=== PATIENT | male | born 1945 | race Caucasian/White ===

== ENCOUNTER → 2018-12-17 | Outpatient (CLI) | payer OTHER ==
[~2018-12-17] VITALS: Ht 182.9 cm; Wt 104.3 kg
[~2018-12-17] MED LIST: ASPIR 8181 MG PO; BAYER CHEWABLE81 MG PO; CENTRUM SILVER1 EAC2 PO; CLOPIDOGREL75 MG PO; HYZAAR 100-12.1 EACH PO; LISINOPRIL-HCT1 EACH; LOPRESSOR25; LOSARTAN-HCTZ1 EAC1 PO; MOBIC15 MG PO; NORCO 5-325 TA1 EACH PO; TOPROL XL25 MG PO; TURMERIC500 M2 PO; [UNRECOGNIZED DRUG - OTHER]; [UNRECOGNIZED DRUG - OTHER]; [UNRECOGNIZED DRUG - OTHER] PO
[2018-12-17 07:23] LABS: HEMATOCRIT 49.8 % (42.0-52.0); HEMOGLOBIN 17.2 gm/dL (14.0-18.0); MCH 31.7 pg (26.0-34.0); MCHC 34.5 g/dL (28.0-37.0); RBC 5.41 mil/uL (4.50-6.00); RDW 13.2 % (10.5-14.5); WBC 6.2 thou/uL (4.0-11.0)
[2018-12-17 07:31] LABS: CALCIUM 9.9 mg/dL (8.5-10.1); CREATININE 1.4 mg/dL (0.7-1.3); POTASSIUM 3.9 mmol/L (3.5-5.1)
[2018-12-17 07:44] VITALS: BP 125/77
--- NOTE | 2018-12-17 08:00 | EKG ---
[place] [address] [facility] [place] [address] ELECTROCARDIOGRAM REPORT Name: SUSANNA VASQUES MABEL [facility] #: [facility] CenterGallo[facility] [id number] ������������������ Admission: 12/17/18 ������������������ Attend Phys: Leon Rdz MD, Discharge: ������������������ Date of : 41 Report #: [id number] ����������������������������������������������������������������� [id number] THIS REPORT FOR: //name// [facility] Test Date: 2018-12-17 Test Time: 07:18:36 Pat Name: SUSANNA VASQUES Department: Room: Gender: Cloud Physicist: Mónica SOLANO : 1945 Requested By: Leon Rdz Order Number: [id number] MD: Bernard Cespedes Measurements Intervals [place] Rate: 63 P: 23 ME: 229 QRS: 27 QRSD: 147 T: 4 QT: 429 QTc: 440 Interpretive Statements Sinus rhythm Prolonged ME interval Right bundle branch block Compared to ECG 01/14/2014 07:49:59 Inferior Q waves are less prominent Right bundle-branch block now present Electronically Signed On 12-17-2018 8:00:33 CDT by Bernard Cespedes [email or web address] ��������������������������������������������� <ELECTRONICALLY SIGNED> ���������������������������������������� By: Bernard Cespedes MD, [facility] ��������������������������������������������� 12/17/18799 7 7 Bernard Cespedes MD, [facility] /EPI
--- NOTE | 2018-12-17 15:48 | CATHLAB ---
Formerly [facility] [place] [address] INVASIVE PROCEDURE REPORT Name: SUSANNA VASQUES Room #: REG HIMANSHU Wolff#: [id number] ������������� Admission: 12/17/18 ������������� Attend Phys: Leon Rdz, Discharge: ��� ������������� ��� Date of : 41 Date of Service: 12/17/18 1548 �� Report #: [id number] �������� ��������������������������������������������[id number] THIS REPORT FOR: //name// APPROVED REPORT Study performed: 12/17/2018 08:37:32 Patient Details Patient Status: Out-Patient Room #: The patient is a 73 year-old male Event Personnel Leon Rdz Per Diem Interpreter, Leonidas Singh RN RN, Dante Quintana RTR Scrub, Alfred Modi Monitor Procedures Performed Left Heart Cath w/or w/o Coronaries [id number] [facility], [facility] Indication Chest pain Procedure Narrative The Right Groin^ was infiltrated with 1% Lidocaine subcutaneous anesthesia. A PINNACLE 6FR Sheath #[id number] sheath was inserted into the RFA^. Coronary angiography was performed using coronary diagnostic catheters. The right coronary system was accessed and visualized with a JR4 catheter. The left coronary system was accessed and visualized with a JL4 catheter. The left ventricle was accessed and visualized with a PIGTAIL catheter. Left ventriculogram was performed in ORNELAS projection. An aortogram of the ascending aorta was performed. The patient tolerated the procedure well and there were no complications associated with the procedure. Intraoperative Conscious Sedation Sedation start time: 08 Case end Time: 08 Fentanyl 50 mcg Versed 1 mg Fluoro Time: 10.59 minutes Dose: DAP 10803.00 cGycm2 523 mGy Contrast Type and Amount: Visipaque 80 ml Hemodynamics The aortic pressure is 139/71 mmHg with a mean of 87 mmHg. The left [facility] [address] [place] [address] INVASIVE PROCEDURE REPORT Name: SUSANNA VASQUES Room #: [facility] Mariella#: [id number] ������������� Admission: 12/17/18 ������������� Attend Phys: Leon Rdz, Discharge: ��� ������������� ��� Date of : 41 Date of Service: 12/17/18 1548 �� Report #: [id number] �������� ��������������������������������������������[id number] ventricular pressure is 137/12 mmHg with a mean of mmHg. The left ventricular end diastolic pressure is 21 mmHg. PCI Technique Lesion Percutaneous coronary intervention was performed on the Superficial Femoral. PCI Technique Lesion 2 Percutaneous Coronary Intervention was performed on the Prox sup femoral. Conclusion #1 normal left ventricular size and systolic function EF 55% #2 dilated aortic root with mild aortic insufficiency. #3 left main with mild disease giving rise to LAD and circumflex #4 LAD with moderate mid vessel lesion of 50-60% long mild calcification that extends around the apex diffusely diseased no indication for intervention #5 circumflex OM nondominant with mild disease #6 dominant right coronary with mild irregularities Recommendations plan: Continue aggressive risk factor modification. No indication for coronary intervention. Peripheral intervention to follow this procedure see Dr. Baugh's dictation ��������������������������������������������� <ELECTRONICALLY SIGNED> ���������������������������������������� By: Leon Rdz MD, [facility] ��������������������������������������������� 12/17/18 1548 1548 1548 Leon Rdz MD, FAC /INF
== END | disposition home or self-care (01) ==
LOC: CATH 06:52
PROVIDERS: Internal Medicine Cardiovascular Disease
DX: I70.211 Atherosclerosis of native arteries of extremities with intermittent claudication, right leg (principal); I25.10 Atherosclerotic heart disease of native coronary artery without angina pectoris; I10 Essential (primary) hypertension; I70.1 Atherosclerosis of renal artery; E78.5 Hyperlipidemia, unspecified; Z90.49 Acquired absence of other specified parts of digestive tract; Z98.890 Other specified postprocedural states; Z87.891 Personal history of nicotine dependence; Z88.8 Allergy status to other drugs, medicaments and biological substances; Z91.041 Radiographic dye allergy status; Z79.82 Long term (current) use of aspirin; Z79.899 Other long term (current) drug therapy

== ENCOUNTER → 2019-08-01 | Outpatient (CLI) | payer OTHER | LOC: SJCVC 12:25 | DX: I45.10 Unspecified right bundle-branch block (principal); R94.31 Abnormal electrocardiogram [ECG] [EKG]; I71.2 Thoracic aortic aneurysm, without rupture; I73.9 Peripheral vascular disease, unspecified; E78.00 Pure hypercholesterolemia, unspecified; I10 Essential (primary) hypertension; K21.9 Gastro-esophageal reflux disease without esophagitis; M19.90 Unspecified osteoarthritis, unspecified site; Z79.82 Long term (current) use of aspirin; Z79.899 Other long term (current) drug therapy ==

== ENCOUNTER → 2019-08-10 | Outpatient (CLI) | payer OTHER | LOC: SJCVCIMAG 10:17 | DX: I73.9 Peripheral vascular disease, unspecified (principal); I45.10 Unspecified right bundle-branch block; I77.811 Abdominal aortic ectasia; I10 Essential (primary) hypertension; I25.10 Atherosclerotic heart disease of native coronary artery without angina pectoris; Z87.891 Personal history of nicotine dependence; Z79.899 Other long term (current) drug therapy ==

== ENCOUNTER → 2019-08-16 | Outpatient (CLI) | payer OTHER | LOC: SJCVC 14:27 | DX: I71.2 Thoracic aortic aneurysm, without rupture (principal); I10 Essential (primary) hypertension; I73.9 Peripheral vascular disease, unspecified; E78.00 Pure hypercholesterolemia, unspecified; K21.9 Gastro-esophageal reflux disease without esophagitis; Z79.82 Long term (current) use of aspirin; Z79.899 Other long term (current) drug therapy ==

== ENCOUNTER → 2020-03-13 | Outpatient (CLI) | payer OTHER | LOC: SJCVCIMAG 10:24 | PROVIDERS: ATTEND Internal Medicine Cardiovascular Disease | DX: R94.31 Abnormal electrocardiogram [ECG] [EKG] (principal); I73.9 Peripheral vascular disease, unspecified; I25.10 Atherosclerotic heart disease of native coronary artery without angina pectoris; I71.2 Thoracic aortic aneurysm, without rupture; I10 Essential (primary) hypertension; E78.00 Pure hypercholesterolemia, unspecified; I45.10 Unspecified right bundle-branch block; Z95.820 Peripheral vascular angioplasty status with implants and grafts ==

== ENCOUNTER → 2020-10-16 | Outpatient (CLI) | payer OTHER | LOC: SJCVCIMAG 13:04 | PROVIDERS: ATTEND Internal Medicine Cardiovascular Disease | DX: R94.31 Abnormal electrocardiogram [ECG] [EKG] (principal); I35.1 Nonrheumatic aortic (valve) insufficiency; I65.23 Occlusion and stenosis of bilateral carotid arteries; I45.10 Unspecified right bundle-branch block; I73.9 Peripheral vascular disease, unspecified; I25.10 Atherosclerotic heart disease of native coronary artery without angina pectoris; I77.9 Disorder of arteries and arterioles, unspecified; I71.2 Thoracic aortic aneurysm, without rupture; E78.00 Pure hypercholesterolemia, unspecified; E78.5 Hyperlipidemia, unspecified; I10 Essential (primary) hypertension; M19.90 Unspecified osteoarthritis, unspecified site; Z87.891 Personal history of nicotine dependence; Z72.89 Other problems related to lifestyle; Z88.8 Allergy status to other drugs, medicaments and biological substances; Z88.6 Allergy status to analgesic agent; Z88.1 Allergy status to other antibiotic agents; Z79.82 Long term (current) use of aspirin; Z79.899 Other long term (current) drug therapy; Z95.820 Peripheral vascular angioplasty status with implants and grafts ==